=== PATIENT | male | born 1985 | race Caucasian/White ===

== ENCOUNTER 2017-11-03 19:16 | Inpatient (IN) | payer MEDICAID, BC, OTHER ==
[~2017-11-03] VITALS: Ht 177.8 cm; Wt 64.0 kg
[2017-11-03] MEDS ORDERED: MAG HYDROX/AL HYDROX/SIMETH 30 ML LIQUID UDC PO PRN (20:45)
[2017-11-03] MEDS ORDERED: NICOTINE 14 MG/24HR PATCH TD PRN (20:45)
[2017-11-03] MEDS ORDERED: ONDANSETRON ODT 4 MG TAB.RAPDIS SL PRN (20:45)
[2017-11-03] MEDS ORDERED: ONDANSETRON 4 MG/2 ML VIAL IM PRN (20:45)
[2017-11-03] MEDS ORDERED: DICYCLOMINE HCL 20 MG TABLET PO PRN (20:45)
[2017-11-03] MEDS ORDERED: MIRALAX 17 GM POWD.PACK PO PRN (20:45)
[2017-11-03] MEDS ORDERED: LORAZEPAM 2 MG/1 ML VIAL IM PRN (20:45)
[2017-11-03] MEDS ORDERED: NICOTINE POLACRILEX 4 MG GUM-PK OF TEN BC PRN (20:45)
[2017-11-03] MEDS ORDERED: THIAMINE HCL 200 MG/2 ML VIAL IM ONE (20:45)
[2017-11-03] MEDS ORDERED: LORAZEPAM 1 MG TABLET PO PRN ×2 (20:45)
[2017-11-03] MEDS ORDERED: ACETAMINOPHEN 325 MG TABLET PO PRN (20:45)
[2017-11-03] MEDS ORDERED: LOPERAMIDE HCL 2 MG CAPSULE PO PRN ×2 (20:45)
[2017-11-03] MEDS ORDERED: LORAZEPAM 1 MG TABLET PO SCH (21:00)
[2017-11-03 21:15] LABS: BASOPHILS % (AUTO) 0.3 % (0.0-2.0); EOSINOPHILS # (AUTO) 0.1 K/uL (0.0-0.7); EOSINOPHILS % (AUTO) 1.2 % (0.0-7.0); HEMATOCRIT 41.7 % (36.7-47.1); HEMOGLOBIN 14.7 g/dL (12.5-16.3); LYMPHOCYTES # (AUTO) 0.6 K/uL (20.0-40.0); LYMPHOCYTES % (AUTO) 6.5 % (20.5-51.5); MEAN CORPUSCULAR HEMOGLOBIN 34.7 uug (23.8-33.4); MEAN CORPUSCULAR HGB CONC 35 g/dL (32.5-36.3); MEAN CORPUSCULAR VOLUME 98.2 fL (73.0-96.2); MONOCYTES % (AUTO) 10.4 % (0.0-11.0); NEUTROPHILS # (AUTO) 7.9 K/uL (1.8-8.9); NEUTROPHILS % (AUTO) 81.6 % (38.5-71.5); PLATELET COUNT (AUTO) 170 K/uL (152-348); RED BLOOD CELL COUNT(AUTO) 4.25 MIL/uL (4.06-5.63); WHITE BLOOD COUNT (AUTO) 9.7 K/uL (3.6-10.2)
[2017-11-03 21:17] LABS: ETHANOL < 3 MG/DL (0-0)
[2017-11-03 21:20] LABS: *AMPHETAMINE, URINE NEGATIVE (NEGATIVE); *BARBITURATE, URINE NEGATIVE (NEGATIVE); *CANNABINOID, URINE POSITIVE (NEGATIVE); *COCCAINE, URINE NEGATIVE (NEGATIVE); *OPIATE, URINE NEGATIVE (NEGATIVE); *PHENCYCLIDINE SCREEN,URINE NEGATIVE (NEGATIVE)
[2017-11-03 21:25] LABS: ALANINE AMINOTRANSFERASE 171 U/L (16-63); ALKALINE PHOSPHATASE 88 U/L (50-136); AMYLASE 81 U/L (25-115); ASPARTATE AMINOTRANSFERASE 196 U/L (15-37); CARBON DIOXIDE 30 mmol/L (21-32); CHLORIDE 98 mmol/L (98-107); CREATININE 1.2 mg/dL (0.6-1.3); GLUCOSE 107 mg/dL (74-106); MAGNESIUM 2.7 mg/dL (1.8-2.4); POTASSIUM 3.8 mmol/L (3.5-5.1); TOTAL PROTEIN, SERUM 8.1 g/dL (6.4-8.2); UREA NITROGEN, BLOOD 8 mg/dL (7-18)
[2017-11-03] MEDS: diphenhydrAMINE 50 MG CAPSULE PO PRN (21:39)
[2017-11-03] MEDS: GABAPENTIN 300 MG CAPSULE PO SCH (21:39)
[2017-11-04] VITALS (8 sets, daily range): BP systolic 124–150; BP diastolic 74–100
[2017-11-04] MEDS ORDERED: TUBERCULIN,PURIF.PROT.DERIV. 5 TU/0.1 ML TEST ID ONE (09:00)
[2017-11-04] MEDS: LORAZEPAM 1 MG TABLET PO SCH ×3 (09:10→20:35)
[2017-11-04] MEDS: FOLIC ACID 1 MG TABLET PO SCH (09:10)
[2017-11-04] MEDS: MULTIVITAMINS,THERAPEUTIC TABLET PO SCH (09:10)
[2017-11-04] MEDS: GABAPENTIN 300 MG CAPSULE PO SCH ×2 (09:10→20:35)
[2017-11-04] MEDS: THIAMINE HCL 100 MG TABLET PO SCH (09:10)
[2017-11-04] MEDS: IBUPROFEN 400 MG TABLET PO PRN (12:30)
[2017-11-04] MEDS: CLONIDINE HCL 0.1 MG TABLET PO PRN (19:38)
[2017-11-04] MEDS: diphenhydrAMINE 50 MG CAPSULE PO PRN (20:35)
[2017-11-05 04:00] VITALS: BP 142/83
[2017-11-05 08:00] VITALS: BP 143/86
[2017-11-05] MEDS: GABAPENTIN 300 MG CAPSULE PO SCH ×4 (08:41→22:06)
[2017-11-05] MEDS: THIAMINE HCL 100 MG TABLET PO SCH (08:41)
[2017-11-05] MEDS: FOLIC ACID 1 MG TABLET PO SCH (08:41)
[2017-11-05] MEDS: MULTIVITAMINS,THERAPEUTIC TABLET PO SCH (08:41)
[2017-11-05] MEDS ORDERED: LORAZEPAM 1 MG TABLET PO SCH (09:00)
[2017-11-05 10:28] LABS: BILIRUBIN,DIRECT 0.4 mg/dL (0.0-0.2); BILIRUBIN,TOTAL 1.7 mg/dL (0.2-1.0); CREATININE 1.1 mg/dL (0.6-1.3); MAGNESIUM 2.2 mg/dL (1.8-2.4); POTASSIUM 4.4 mmol/L (3.5-5.1); TOTAL PROTEIN, SERUM 7.8 g/dL (6.4-8.2)
[2017-11-05 12:00] VITALS: BP 143/85
[2017-11-05] MEDS: LORAZEPAM 1 MG TABLET PO SCH ×3 (14:16→21:57)
[2017-11-05 15:08] LABS: HEPATITIS B SURFACE AG Negative (Negative)
[2017-11-05 16:00] VITALS: BP 148/100
[2017-11-05 17:13] VITALS: BP 148/100
[2017-11-05 20:19] VITALS: BP 137/85
[2017-11-05] MEDS: OLANZAPINE ZYDIS 5 MG TAB.RAPDIS PO ONE ×2 (21:30→22:00)
[2017-11-05] MEDS: OLANZAPINE 5 MG TABLET ONE ×2 (21:52→22:00)
[2017-11-05] MEDS ORDERED: LORAZEPAM 1 MG TABLET PO ONE (23:30)
[2017-11-05] MEDS ORDERED: OLANZAPINE 5 MG TABLET ONE (23:42)
[2017-11-06 00:30] VITALS: BP 132/84
[2017-11-06 04:27] VITALS: BP 129/86
[2017-11-06 08:00] VITALS: BP 120/87
[2017-11-06] MEDS: GABAPENTIN 300 MG CAPSULE PO SCH ×3 (09:00→20:15)
[2017-11-06] MEDS: LORAZEPAM 1 MG TABLET PO SCH ×3 (09:00→20:15)
[2017-11-06] MEDS ORDERED: LORAZEPAM 1 MG TABLET PO SCH (09:00)
[2017-11-06] MEDS: THIAMINE HCL 100 MG TABLET PO SCH (09:00)
[2017-11-06] MEDS: FOLIC ACID 1 MG TABLET PO SCH (09:00)
[2017-11-06] MEDS: MULTIVITAMINS,THERAPEUTIC TABLET PO SCH (09:00)
[2017-11-06 12:00] VITALS: BP 141/85
[2017-11-06 16:00] VITALS: BP 112/75
[2017-11-06] MEDS: CLONIDINE HCL 0.1 MG TABLET PO PRN (16:25)
[2017-11-06 20:11] VITALS: BP 140/92
[2017-11-06] MEDS: diphenhydrAMINE 50 MG CAPSULE PO PRN (20:15)
[2017-11-07 00:22] VITALS: BP 134/88
[2017-11-07 04:21] VITALS: BP 126/81
[2017-11-07 08:00] VITALS: BP 114/74
[2017-11-07] MEDS: GABAPENTIN 300 MG CAPSULE PO SCH ×3 (08:42→20:46)
[2017-11-07] MEDS: THIAMINE HCL 100 MG TABLET PO SCH (08:43)
[2017-11-07] MEDS: FOLIC ACID 1 MG TABLET PO SCH (08:43)
[2017-11-07] MEDS: IBUPROFEN 400 MG TABLET PO PRN ×2 (08:43→23:20)
[2017-11-07] MEDS: MULTIVITAMINS,THERAPEUTIC TABLET PO SCH (08:43)
[2017-11-07] MEDS ORDERED: LORAZEPAM 1 MG TABLET PO SCH ×2 (09:00→21:00)
[2017-11-07 12:00] VITALS: BP 149/103
[2017-11-07] MEDS: LORAZEPAM 1 MG TABLET PO SCH ×2 (12:11→15:08)
[2017-11-07] MEDS: CLONIDINE HCL 0.1 MG TABLET PO PRN (13:27)
[2017-11-07 16:00] VITALS: BP 147/84
[2017-11-07 20:00] VITALS: BP 139/95
[2017-11-07] MEDS: diphenhydrAMINE 50 MG CAPSULE PO PRN (23:14)
[2017-11-08] VITALS: BP 136/91
[2017-11-08 04:00] VITALS: BP 112/74
[2017-11-08 08:00] VITALS: BP 119/73
[2017-11-08] MEDS ORDERED: LORAZEPAM 1 MG TABLET PO SCH (09:00)
[2017-11-08] MEDS: GABAPENTIN 300 MG CAPSULE PO SCH ×3 (09:10→20:31)
[2017-11-08] MEDS: FOLIC ACID 1 MG TABLET PO SCH (09:10)
[2017-11-08] MEDS: THIAMINE HCL 100 MG TABLET PO SCH (09:10)
[2017-11-08] MEDS: MULTIVITAMINS,THERAPEUTIC TABLET PO SCH (09:10)
[2017-11-08] MEDS: IBUPROFEN 400 MG TABLET PO PRN (09:10)
[2017-11-08 12:00] VITALS: BP 154/103
[2017-11-08] MEDS: CLONIDINE HCL 0.1 MG TABLET PO PRN ×2 (12:17→18:21)
[2017-11-08] MEDS: LORAZEPAM 1 MG TABLET PO SCH ×2 (14:03→20:31)
[2017-11-08 16:00] VITALS: BP_SYST 145; BP_SYST 146; BP_DIAS 108; BP_DIAS 98
[2017-11-08 20:00] VITALS: BP 137/86
[2017-11-09] VITALS: BP 146/90
[2017-11-09] MEDS: diphenhydrAMINE 50 MG CAPSULE PO PRN ×2 (00:03→22:57)
[2017-11-09] MEDS: CLONIDINE HCL 0.1 MG TABLET PO PRN ×3 (00:29→16:14)
[2017-11-09 01:00] VITALS: BP 141/75
[2017-11-09] MEDS: GABAPENTIN 300 MG CAPSULE PO SCH ×3 (08:21→20:51)
[2017-11-09] MEDS: THIAMINE HCL 100 MG TABLET PO SCH (08:21)
[2017-11-09] MEDS: IBUPROFEN 400 MG TABLET PO PRN (08:21)
[2017-11-09] MEDS: FOLIC ACID 1 MG TABLET PO SCH (08:21)
[2017-11-09] MEDS: MULTIVITAMINS,THERAPEUTIC TABLET PO SCH (08:21)
[2017-11-09 08:28] VITALS: BP 116/73
[2017-11-09] MEDS ORDERED: LORAZEPAM 1 MG TABLET PO SCH (09:00)
[2017-11-09] MEDS: VALACYCLOVIR HCL 500 MG TABLET PO SCH ×2 (12:09→20:51)
[2017-11-09] MEDS: HYDROXYZINE PAMOATE 25 MG CAPSULE PO PRN ×2 (12:12→18:24)
[2017-11-09 12:44] VITALS: BP 128/75
[2017-11-09 16:59] VITALS: BP 136/82
[2017-11-09 20:00] VITALS: BP 133/82
[2017-11-09] MEDS ORDERED: GABA-534 PO (20:40)
[2017-11-09] MEDS ORDERED: HYDR-3895 PO (20:40)
[2017-11-09] MEDS ORDERED: IBUP-1953 PO (20:40)
[2017-11-09] MEDS ORDERED: DIPH50CA37 PO (20:40)
[2017-11-09] MEDS ORDERED: CLON0.1T14 PO (20:40)
[2017-11-09] MEDS ORDERED: VALA500T PO (20:40)
[2017-11-09] MEDS: CLONIDINE HCL 0.1 MG TABLET PO SCH (20:51)
[2017-11-10] VITALS: BP 131/76
[2017-11-10] MEDS: HYDROXYZINE PAMOATE 25 MG CAPSULE PO PRN (01:05)
[2017-11-10 04:00] VITALS: BP 118/70
[2017-11-10] MEDS: MULTIVITAMINS,THERAPEUTIC TABLET PO SCH (08:36)
[2017-11-10] MEDS: THIAMINE HCL 100 MG TABLET PO SCH (08:36)
[2017-11-10] MEDS: VALACYCLOVIR HCL 500 MG TABLET PO SCH (08:36)
[2017-11-10] MEDS: FOLIC ACID 1 MG TABLET PO SCH (08:36)
[2017-11-10] MEDS: GABAPENTIN 300 MG CAPSULE PO SCH (08:36)
[2017-11-10 08:37] VITALS: BP 133/68
[2017-11-10] MEDS: CLONIDINE HCL 0.1 MG TABLET PO SCH (08:37)
== END 2017-11-10 09:00 | disposition home or self-care (01) | DRG 772 ==
LOC: SRC 19:45
PROVIDERS: ADMIT Internal Medicine; ATTEND Internal Medicine
PROC: HZ2ZZZZ Detoxification Services for Substance Abuse Treatment (ICD-10-PCS; principal; 2017-11-03)
PROC: HZ41ZZZ Group Counseling for Substance Abuse Treatment, Behavioral (ICD-10-PCS; 2017-11-04)
PROC: HZ31ZZZ Individual Counseling for Substance Abuse Treatment, Behavioral (ICD-10-PCS; 2017-11-04)
DX: F10.232 Alcohol dependence with withdrawal with perceptual disturbance (principal); I15.9 Secondary hypertension, unspecified; K70.10 Alcoholic hepatitis without ascites; F13.10 Sedative, hypnotic or anxiolytic abuse, uncomplicated; F15.10 Other stimulant abuse, uncomplicated; Y90.9 Presence of alcohol in blood, level not specified; F17.210 Nicotine dependence, cigarettes, uncomplicated; F12.10 Cannabis abuse, uncomplicated; Z81.1 Family history of alcohol abuse and dependence; Z81.8 Family history of other mental and behavioral disorders; Z82.49 Family history of ischemic heart disease and other diseases of the circulatory system
CPT/HCPCS: 36415; 70030-TC; 80307; 80346; 80349; 83735; 85025; 85610; 86580; 86592; 86705; 86803; 87340; 87806; G0480; J3411; Q0163